=== PATIENT | female | born 1985 | race African-American/Black ===

== ENCOUNTER 2020-08-10 01:57 | Emergency (ER) | payer BC, MEDICAID ==
[~2020-08-10] VITALS: Ht 160 cm; Wt 89.9 kg
[2020-08-10 02:48] LABS: BASOPHILS % 0.2 % (0.0-2.0); EOSINOPHILS % 0.4 % (0.0-5.0); HEMATOCRIT. 35.3 % (36.0-48.0); HEMOGLOBIN. 11.8 g/dL (12.0-16.0); LYMPHOCYTES % 19.2 % (20.0-50.0); MEAN CORPUSCULAR HEMOGLOBIN 29.2 pg (28.0-32.0); MEAN CORPUSCULAR VOLUME 87.6 fL (81.0-99.0); MEAN PLATELET VOLUME 6.9 fl (7.4-10.4); MONOCYTES % 5.5 % (2.0-8.0); NEUTROPHILS % 74.7 % (40.0-76.0); PLATELET 312 x1000/uL (130-400); RED BLOOD CELL COUNT 4.03 mill/uL (4.2-5.4); RED CELL DISTRIBUTION WIDTH 13.8 % (11.6-14.6)
[2020-08-10 02:56] LABS: CHLORIDE 108 mEq/L (98-107)
[2020-08-10 03:19] LABS: B-HCG QUANTITATIVE 82864 mIU/mL (<3)
[2020-08-10 03:19] LABS: CLARITY URINE CLEAR (CLEAR); COLOR URINE YELLOW (YELLOW); KETONES URINE 1+ (NEGATIVE); LEUKOCYTE ESTERASE URINE NEGATIVE (NEGATIVE); NITRITE URINE NEGATIVE (NEGATIVE); OCCULT BLOOD URINE 1+ (NEGATIVE); PH URINE 5.5 (4.5-8.0); PROTEIN URINE NEGATIVE (NEGATIVE); SPECIFIC GRAVITY URINE 1.014 (1.005-1.030); UROBILINOGEN URINE 0.2 E.U./dL (0.2-1.0)
[2020-08-10 04:11] VITALS: BP 125/78
[2020-08-10] MEDS ORDERED: ACETAMINOPHEN 325MG TABLET PO ONE (04:15)
== END 2020-08-10 04:00 | disposition home or self-care (01) ==
LOC: ER 01:57
DX: O20.0 Threatened abortion (principal); Z3A.15 15 weeks gestation of pregnancy; Z98.890 Other specified postprocedural states
CPT/HCPCS: 36415; 76805; 80053; 81003; 84702; 85025; 86850; 86900; 99284